=== PATIENT | male | born 1995 | race Two or more races ===

== ENCOUNTER 2023-02-25 19:06 | Emergency (ER) | payer SELFPAY ==
[~2023-02-25] VITALS: Ht 170.2 cm; Wt 130.0 kg
[2023-02-25] MEDS ORDERED: DEXTROSE (50%) 50ML SYRG IV ONE (19:12)
[2023-02-25] MEDS ORDERED: EPINEPHrine HCL 1 MG/10 ML SYRG IV ONE (19:12)
[2023-02-25] MEDS ORDERED: D5W 5% 100 ML BAG IV ONE (19:12)
== END 2023-02-25 19:18 ==
LOC: EDBD 19:06 → ER 19:11
DX: S31.139A Puncture wound of abdominal wall without foreign body, unspecified quadrant without penetration into peritoneal cavity, initial encounter (principal); I46.9 Cardiac arrest, cause unspecified; W34.00XA Accidental discharge from unspecified firearms or gun, initial encounter; Y93.89 Activity, other specified; Y92.89 Other specified places as the place of occurrence of the external cause; Y99.8 Other external cause status
CPT/HCPCS: 31500; 92950; 99285; J0171; J7042; J7060